=== PATIENT | female | born 1980 | race Two or more races ===

== ENCOUNTER 2024-07-23 02:56 | Emergency (ER) | payer OTHER, SELFPAY ==
[2024-07-23 02:58] VITALS: BMI 49.9
--- NOTE | 2024-07-23 03:07 | XR_ITS ---
Examination: Duplex scan of the upper extremity, unilateral left Date and time of exam: July 23, 2024 0355 hours INDICATIONS: Left arm redness swelling heaviness and pain 5 days Technique: Duplex scan of the extremity veins using B-mode/grayscale imaging and Doppler spectral analysis and color flow Attention is directed to internal echogenicity, compression and augmentation involving these veins, color flow assessment, spectral analysis Findings: Major deep venous structures in the extremity demonstrate normal course and caliber. There is no evidence of deep vein thrombosis. Normal color flow and spectral analysis Impression: Negative for DVT..
--- NOTE | 2024-07-23 03:07 | EKG_ITS ---
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
--- NOTE | 2024-07-23 03:10 | PD.EDRME ---
Rapid Medical Screening Exam RME Arrival date/time: 07/23/24 02:56 This is a case of 43-year-old female who came into the emergency room due to left upper arm pain radiating to the left lower arm no chest pain no shortness of breath for 1 day patient denies any injury or trauma Chief Complaint: Extremity Injury, Upper Time Seen by Provider: 07/23/24 03:06
[2024-07-23 03:15] VITALS: BP 163/135; BP 166/130; PULSE 89; RESP 18; TEMP 36.7; O2SAT 97
[2024-07-23 03:43] LABS: Basophils # (Auto) 0.1 Thou/mm3 (0.0-0.2); Basophils % (Auto) 1 % (0-2.5); Eosinophils # (Auto) 0.2 Thou/mm3 (0.0-0.5); Eosinophils % (Auto) 2 % (0-10); Hematocrit 40.4 % (36.0-46.0); Hemoglobin 13.7 g/dL (12.0-16.0); Immature Granulocytes % (Auto) 0 % (0-0); Immature Granulocytes Auto 0.02 Thou/mm3 (0.00-0.00); Lymphocytes # (Auto) 2.4 Thou/mm3 (1.0-4.8); Lymphocytes % (Auto) 26 % (10-50); Mean Corpuscular HGB Conc 33.9 g/dl (31.0-37.0); Mean Corpuscular Hemoglobin 26.9 pg (25.0-35.0); Mean Corpuscular Volume 79 fL (80-100); Monocytes # (Auto) 0.6 Thou/mm3 (0.0-0.8); Monocytes % (Auto) 6 % (0-12); Neutrophils % (Auto) 65 % (37-80); Nucleated Red Blood Cell % 0 /100 WBC (0); Platelet Count 204 Thou/mm3 (140-440); RDW Standard Deviation 38.5 fL (36.4-46.3); Red Blood Count 5.09 Miln/mm3 (4.00-5.20); White Blood Count 9.3 Thou/mm3 (3.6-11.0)
[2024-07-23 04:01] LABS: Alanine Aminotransferase 25 U/L (10-49); Albumin, Serum 4.6 gm/dL (3.5-5.0); Albumin/Globulin Ratio 1.5 (1.2-2.2); Alkaline Phosphatase 93 U/L (46-116); Anion Gap 11 (7-16); Aspartate Amino Transferase 13 U/L (0-34); BUN/Creatinine Ratio 27 Ratio (12-20); Bilirubin,Total 0.3 mg/dL (0.3-1.2); Blood Urea Nitrogen 16 mg/dL (9-23); Calcium 9.2 mg/dL (8.3-10.6); Calcium (Corrected) 9.2 mg/dL (8.5-10.1); Carbon Dioxide 27.9 mMol/L (20.0-31.0); Chloride 102 mMol/L (98-107); Creatinine (Component) 0.6 mg/dL (0.6-1.3); Estimated Creatinine Clearance 172.6 mL/min (>60); Globulin 3.1 gm/dL (2.3-3.5); Glucose 176 mg/dL (74-106); Osmolality,Calculated 286 (275-295); Potassium 4.3 mMol/L (3.4-5.1); Sodium 141 mMol/L (136-145); Total Protein 7.7 gm/dL (5.7-8.2); eGFR > 60 See Note
[2024-07-23 04:30] VITALS: BP 152/104; PULSE 78; RESP 12; TEMP 36.6; O2SAT 93
[2024-07-23 04:46] LABS: D-Dimer < 250 ng/mL (<600)
[2024-07-23 05:30] VITALS: BP 148/96; PULSE 71; RESP 15; TEMP 36.6; O2SAT 93
--- NOTE | 2024-07-23 05:39 | PRELIM_ITS ---
Left upper extremity venous Doppler ultrasound. July 23, 2024 0355 hours Clinical history: r/o dvt Technique: Duplex scan of the left arm performed utilizing, 2D grayscale imaging, Doppler spectral analysis and color flow Doppler with compression. Comparison: None Findings: The internal jugular vein is patent and compressible. The subclavian vein is patent. The axillary and brachial veins are patent and demonstrate good compression and augmentation. The cephalic and basilic veins are patent and demonstrate good compression. No evidence of thrombosis. Impression: No evidence of venous thrombosis in the left upper extremity. Report Electronically Signed By: Joshua Drake 07/23/2024 5:38:20 AM [EST]
--- NOTE | 2024-07-23 06:46 | PD.EDUPEX ---
Upper Extremity Injury RME/HPI General Chief Complaint: Extremity Injury, Upper Stated Complaint: L ARM PAIN AND HEAVYNESS Time Seen by Provider: 07/23/24 03:06 Arrival date/time: 07/23/24 02:56 RME / HPI RME / HPI narrative: 07/23/24 02:56 This is a case of 43-year-old female who came into the emergency room due to left upper arm pain radiating to the left lower arm no chest pain no shortness of breath for 1 day patient denies any injury or trauma. 43-year-old female [id number] with a history of chronic back pain who presents with worsening left shoulder pain for the last 6 months. 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 She now has worsening of the left shoulder pain, sharp in nature, and she feels it is difficult to lift her arm secondary to the pain. She has oxycodone of which she takes for her chronic back pain of which she took at home with minimal relief therefore comes to the emergency department. She is specifically requesting for a sling. She denies chest pain or shortness of breath MD complaint: injury to: left and arm Onset (ago): month(s) Related Data Home Medications ?Medication ?Instructions ?Recorded ?Confirmed loratadine 10 mg tablet (Claritin) 10 mg PO QDAY PRN Allergic Reaction 09/20/18 03/07/19 Previous Rx's ?Medication ?Instructions ?Recorded cyclobenzaprine 10 mg tablet 10 mg PO TID #30 tabs 05/12/19 ibuprofen 600 mg tablet 600 mg PO Q8H PRN pain #25 tabs 07/23/24 Allergies Allergy/AdvReac Type Severity Reaction Status Date / Time pineapple Allergy Severe Anaphylaxis Verified 07/23/24 03:03 Review of Systems Review of Systems Systems Reviewed: All systems reviewed, normal except as documented ED Exam Narrative Physical exam: GENERAL APPEARANCE: AxOx4, generally well-appearing, no acute distress. EXTREMITIES: Left shoulder with limited range of motion secondary to pain, on internal rotation stress did elicit significant pain as well, otherwise no cyanosis, no edema, neurovascularly intact distal to the left shoulder. MUSCULOSKELETAL: FROM of all remaining major joints, no chest tenderness NEUROLOGICAL: Grossly nonfocal. Alert and oriented, moving all 4 extremities. CN not formally tested but appear grossly intact. Observed to ambulate with normal gait. Skin: Warm and dry without any rash. Course Quality Measures none Orders Category Date Time Status Bedside COVID-19 Antigen Test NOW Care 07/23/24 06:58 Active EKG (ED ONLY) *Do not use* NOW Care 07/23/24 03:07 Completed sling [Splint / Immobilizer] STAT Care 07/23/24 07:03 Active EKG (ED Only) Stat Exams 07/23/24 03:07 Ordered US venous doppler UE LT Stat Exams 07/23/24 03:07 Taken CBC Stat Lab 07/23/24 03:33 Completed CMP [Comprehensive Metabolic Panel] Stat Lab 07/23/24 03:33 Completed D-Dimer Stat Lab 07/23/24 03:33 Completed Ketorolac Inj [Toradol Inj] Med 07/23/24 07:03 Discontinued 30 mg IM X1 ONE Vital Signs Vital signs: Vital Signs Temperature 98.1 F 07/23/24 03:15 Pulse Rate 89 07/23/24 03:15 Respiratory Rate 18 07/23/24 03:15 Blood Pressure 166/130 H 07/23/24 03:15 Pulse Oximetry (%) 97 07/23/24 03:15 Oxygen Delivery Method Room Air 07/23/24 03:15 Extremity Injury MDM Narrative MDM Narrative:: Ms. Soren Pham presents to the emergency department with atraumatic left shoulder pain consistent with a rotator cuff injury. She has a moderate amount of pain today where left shoulder exam cannot be completed to fully assess her rotator cuff. 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 Laboratory testing and ultrasound were sent via the E process which shows no acute findings. Shoulder x-ray is not indicated today. Patient data External records reviewed:: [facility] previous records Clinical information provided by:: patient Social determinants that could affect healthcare access:: none Patient has the following chronic illnesses:: None How is presenting disease/condition affected by chronic disease/condition?: no chronic disease Evaluation data The following diagnostics were reviewed and interpreted by me:: lab results and radiology exam(s) Lab and/or radiology exams considered but not ordered:: As per narrative Interpretation Summary: As per narrative Medications / Prescriptions Medications or Prescriptions considered but not ordered:: As per narrative Medication administrations:: Medication Administration History Discontinued Medications Ketorolac Tromethamine (Ketorolac Inj 60 Mg/2 Ml Vial) 30 mg IM X1 ONE Stop: 07/23/24 07:04 Above Consultations Consultation(s) initiated? (list below): No Diagnosis Upper Extremity Injury Differential Diagnosis: dislocation of shoulder, fracture of humerus and other (Rotator cuff injury) Most likely diagnosis given after review of the tests above:: See below Admission Indicated Admission indicated?: not indicated Admission Request Was there a request for admission?: No Disposition Plan Disposition Plan: Discharge Discharge Attestation Discharge Attestation: The patient and all family members were given an opportunity to ask questions and understood the discharge instructions. Discharge instructions specifically effects, indications for sooner follow up or return to the emergency department, and the expected course of current diagnosis. Patient condition: Stable Discharge Plan Plan Patient Disposition: HOME (Self Care) Prescriptions/Referrals Prescriptions/Med Rec: New ibuprofen 600 mg tablet 600 mg PO Q8H PRN (Reason: pain) Qty: 25 0RF No Action cyclobenzaprine 10 mg tablet 10 mg PO TID Qty: 30 0RF loratadine [Claritin] 10 mg Tablet 10 mg PO QDAY PRN (Reason: Allergic Reaction) Referrals: No Primary/Family,Physician [Primary Care Provider] - In 1 week Problem List Clinical Impression: Shoulder sprain Patient/Caregiver Discharge Instructions Education Materials: Exercise Shoulder Wall Walk, ED Shoulder Sprain Additional Instructions: Recommend ice when possible to the left shoulder and anti-inflammatories. Follow-up with your primary care doctor upon return to [place] for further for reexamination and possible further testing. You can return to the emergency department sooner symptoms worsen or if you notice any new, concerning issues. Print Language: Mohawk Stand Alone Forms: [facility]par[facility] Award Info., Patient Portal Info Letter
[2024-07-23] MEDS: KETOROLAC INJ 60 MG/2 ML VIAL 30 MG IM (07:55)
== END 2024-07-23 08:25 | disposition home or self-care (01) ==
PROVIDERS: Nurse Practitioner Family; Emergency Provider Emergency Medicine
DX: S43.402A Unspecified sprain of left shoulder joint, initial encounter (principal); X58.XXXA Exposure to other specified factors, initial encounter
CPT/HCPCS: 36415; 80053; 85025; 85379; 87400; 87811; 93005; 93971; 96372; 99284; J1885